=== PATIENT | female | born 1950 | race Caucasian/White ===

== ENCOUNTER 2018-01-09 14:35 | Emergency (ER) | payer MEDICARE, MEDICAID ==
[2018-01-09] MEDS ORDERED: CEFTRIAXONE SODIUM 1 GM in 0.9 % SODIUM CHLORIDE 100ML 100 ML IVPB ONE (15:02)
--- NOTE | 2018-01-09 15:21 | Emergency Department Record ---
History of Present Illness - General Chief Complaint: Wound, check Stated Complaint: RECHECK FOR IV ANTIBIOTICS(RT ARM) Time Seen by Provider: 01/09/18 15:02 Source: Patient Mode of arrival: Ambulatory Limitations: No limitations - History of Present Illness Initial Comments: The patient is here due to recheck of her R arm infection. She was here yesterday and treated with Rocephin and Prednisone. Now the infection is much improved and she is having much less swelling and redness and no pain. MD Complaint: Wound re-check Onset/Timin -: Days(s) Initial Visit For: Cellulitis - Related Data Previous Rx's Medication Instructions Recorded Prednisone [Prednisone 20Mg] 40 mg PO DAILY #8 tab 01/08/18 Cephalexin [Keflex] 500 mg PO QID #12 cap 01/09/18 Allergies Allergy/AdvReac Type Severity Reaction Status Date / Time Sulfa (Sulfonamide Allergy DIZZINESS Verified 01/09/18 15:04 Antibiotics) Travel Screening - Travel/Exposure Within Last 30 Days Have you traveled within the last 30 days?: No - Travel/Exposure Within Last Year Have you traveled outside the [place] in the last year?: No - Additonal Travel Details Have you been exposed to anyone with a communicable illness?: No - Travel Symptoms Symptom Screening: None Review of Systems Constitutional: Denies: Chills, Fever Past Medical History - SOCIAL HISTORY Smoking Status: Current every day smoker Alcohol Use: None Drug Use: None - RESPIRATORY Hx Respiratory Disorders: No - CARDIOVASCULAR Hx Cardio Disorders: No - NEURO Hx Neuro Disorders: No - GI Hx GI Disorders: No - Hx Genitourinary Disorders: No - ENDOCRINE Hx Endocrine Disorders: Yes Hx Diabetes: Yes (type 2) - MUSCULOSKELETAL Hx Musculoskeletal Disorders: No - PSYCH Hx Psych Problems: Yes Hx Anxiety: No Hx Depression: Yes - HEMATOLOGY/ONCOLOGY Hx Hematology/Oncology Disorders: No Family Medical History Any Significant Family History?: Yes Physical Exam - General General Appearance: Alert, Oriented x3, Cooperative, No acute distress - Head Head exam: Atraumatic, Normocephalic - Eye Eye exam: Normal appearance, PERRL - Extremities Extremities exam: negative: Normal inspection (The R forearm erythema and edema are greatly improved. The R arm is NVI with no open wounds or tenderness.) Course Vital Signs 01/09/18 14:58 Temperature 98.0 F Pulse Rate 78 Respiratory 18 Rate Blood Pressure 153/75 Pulse Ox 100 - Reevaluation(s) Reevaluation #1: I did discuss the need to continue the the present treatment course. She is to return to the for any problems or worsening symptoms. 01/09/18 15:39 Disposition Disposition: Discharge Clinical Impression: Swelling of arm Disposition: Home, Self-Care Condition: (2) Stable Instructions: Wound Infection (ED) Additional Instructions: Please continue the Keflex and Prednisone. Please see your family doctor in 2-3 days for recheck. Return to the ER for any worsening symptoms. Prescriptions: Cephalexin [Keflex] 500 mg PO QID #12 cap Forms: Patient Portal Access Time of Disposition: 15:40 Quality - Quality Measures Quality Measures: N/A - Blood Pressure Screening View Details: Yes Does Patient Have Any of the Following: No Blood Pressure Classification: Hypertensive Reading Systolic Measurement: 153 Diastolic Measurement: 75 Screening for High Blood Pressure: < First Hypertensive BP, F/U Documented > [ [id number]] First Hypertensive Follow-up Interventions: Referral to alternative/primary care provider.
== END 2018-01-09 15:58 | disposition home or self-care (01) ==
LOC: ER 14:35
DX: L08.9 Local infection of the skin and subcutaneous tissue, unspecified (principal); R22.31 Localized swelling, mass and lump, right upper limb; E11.9 Type 2 diabetes mellitus without complications; F17.210 Nicotine dependence, cigarettes, uncomplicated
CPT/HCPCS: 36416; 82948; 96365; 99282